=== PATIENT | male | born 1955 | race Caucasian/White ===

== ENCOUNTER 2018-05-06 21:42 | Emergency (ER) | payer MEDICAID ==
[2018-05-07] MEDS: TETRACAINE 0.5% 4 ML OPH RIGHT EYE (02:23)
[2018-05-07] MEDS: FLUORESCEIN STRIP RIGHT EYE (02:23)
[2018-05-07] MEDS: ACYCLOVIR 800 MG TAB PO (05:00)
== END 2018-05-07 05:09 | disposition home or self-care (01) ==
LOC: FTE 05-07 05:09
DX: B02.9 Zoster without complications (principal); H10.9 Unspecified conjunctivitis
CPT/HCPCS: 99283; Z7610

== ENCOUNTER 2018-08-25 13:10 | Emergency (ER) | payer MEDICAID ==
[2018-08-25] MEDS: HYDROmorphONE 1 MG/ML SYG IV (13:57)
[2018-08-25] MEDS: SOD CHLORIDE 0.9% 1,000 ML IV (13:58)
[2018-08-25] MEDS: ONDANSETRON 4 MG INJ IV ×2 (13:58→19:12)
[2018-08-25 14:06] LABS: ADD MAN DIFF? NO
[2018-08-25 14:08] LABS: WHITE BLOOD COUNT 10.8 10^3/ul (4.8-10.8)
[2018-08-25 14:08] LABS: BASOPHILS % 0.3 % (0.0-2.0); HEMATOCRIT 43.5 % (42.0-52.0); HEMOGLOBIN 14.7 g/dl (14.0-18.0); LYMPHOCYTES # 0.7 10^3/ul (0.8-2.9); LYMPHOCYTES % 6.2 % (15.0-51.0); MEAN CORPUSCULAR HEMOGLOBIN 28.9 pg (29.0-33.0); MEAN CORPUSCULAR HGB CONC 33.8 g/dl (32.0-37.0); MEAN CORPUSCULAR VOLUME 85.6 fl (82.0-101.0); MEAN PLATELET VOLUME 9.4 fl (7.4-10.4); MONOCYTE # 0.3 10^3/ul (0.3-0.9); MONOCYTES % 3.2 % (0.0-11.0); NEUTROPHIL # 9.7 10^3/ul (1.6-7.5); NEUTROPHILS % 89.9 % (39.0-77.0); PLATELET COUNT 196 10^3/UL (140-415); RED BLOOD COUNT 5.08 10^6/ul (4.70-6.10); RED CELL DISTRIBUTION WIDTH 12.6 % (11.5-14.5)
[2018-08-25 14:25] LABS: ALANINE AMINOTRANSFERASE 45 IU/L (13-69); ALBUMIN 4.5 g/dl (3.3-4.9); ALBUMIN/GLOBULIN RATIO 1.45; ALKALINE PHOSPHATASE 122 IU/L (42-121); ANION GAP 10 (5-13); ASPARTATE AMINO TRANSFERASE 60 IU/L (15-46); BILIRUBIN,INDIRECT 0.7 mg/dl (0-1.1); BILIRUBIN,TOTAL 0.7 mg/dl (0.2-1.3); BLOOD UREA NITROGEN 13 mg/dl (7-20); CALCIUM 8.8 mg/dl (8.4-10.2); CARBON DIOXIDE 28 mmol/L (21-31); CHLORIDE 99 mmol/L (97-110); CREATININE 0.62 mg/dl (0.61-1.24); Estimated GFR > 60 mL/min (>60); GLUCOSE 144 mg/dl (70-220); LIPASE 50 U/L (23-300); POTASSIUM 3.3 mmol/L (3.5-5.1); SODIUM 137 mmol/L (135-144); TOTAL PROTEIN 7.6 g/dl (6.1-8.1)
[2018-08-25] MEDS: SOD CHLORIDE 0.9% 100 ML (15:57)
[2018-08-25] MEDS: IOHEXOL 300MG/ML 150 ML BTL (15:57)
[2018-08-25] MEDS: morphine 4 MG/ML VIAL IV (19:13)
== END 2018-08-25 19:39 | disposition home or self-care (01) ==
LOC: E/R 13:10
DX: K57.32 Diverticulitis of large intestine without perforation or abscess without bleeding (principal)
CPT/HCPCS: 36415; 74177; 76705; 80053; 83690; 85025; 96361; 96374; 96375; 96376; 99285-25